=== PATIENT | male | born 2000 | race African-American/Black ===

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

== ENCOUNTER 2019-02-14 07:40 | Emergency (ER) | payer OTHER, SELFPAY ==
[2019-02-14] MEDS ORDERED: Azithromycin 250 MG TAB ONE (08:01)
[2019-02-14] MEDS ORDERED: cefTRIAXone\\ROCEPHIN 250 MG VIAL ONE (08:01)
== END 2019-02-14 08:10 | disposition home or self-care (01) ==
LOC: MADERS 07:40
DX: A64 Unspecified sexually transmitted disease (principal); B35.6 Tinea cruris
CPT/HCPCS: 96372; J0696

== ENCOUNTER 2019-06-07 07:32 | Emergency (ER) | payer SELFPAY ==
[2019-06-07] MEDS ORDERED: Lidocaine 1% 20 ML MDV ONE (08:13)
[2019-06-07] MEDS ORDERED: cefTRIAXone\\ROCEPHIN 250 MG VIAL ONE (08:13)
[2019-06-09 22:03] LABS: Chlam.trachomatis by PCR,Urine DETECTED (NotDetected)
== END 2019-06-07 08:40 | disposition home or self-care (01) ==
LOC: MADERS 07:32
DX: N34.1 Nonspecific urethritis (principal)
CPT/HCPCS: 87086; 87491; 87591; 96372; 99283; J0696; J2001

== ENCOUNTER 2020-03-26 08:20 | Emergency (ER) | payer SELFPAY | END 2020-03-26 08:51 | disposition home or self-care (01) | LOC: MADERS 08:20 | DX: L29.3 Anogenital pruritus, unspecified (principal) | CPT/HCPCS: 99281 ==

== ENCOUNTER 2020-03-30 09:11 | Emergency (ER) | payer SELFPAY ==
[2020-03-30 10:06] LABS: #Lymphocytes 2.1 thou/uL (1.20-3.40); #Monocytes 0.4 thou/uL (0.11-0.59); #Neutrophils 1.9 thou/uL (1.40-6.50); %Eosinophils 0.8 % (0.0-10.0); %Lymphocytes 46.7 % (28.0-48.0); %Monocytes 8.9 % (0.0-4.0); %Neutrophils 42.5 % (31.0-61.0); Hemoglobin 15.3 g/dL (14.0-18.0); Mean Corpuscular Hemoglobin 28.5 pg (25.0-35.0); Mean Platelet Volume 8.4 fL (7.4-10.4); Platelet Count 247 thou/uL (130-400); RBC Distribution Width 11.6 % (11.5-14.5); Red Blood Cell (RBC) Count 5.37 mill/uL (4.00-5.20); White Blood Cell (WBC) Count 4.4 thou/uL (4.8-10.8)
[2020-03-30] MEDS ORDERED: Ondansetron PF 4 MG/2 ML Vial ONE (10:16)
[2020-03-30] MEDS ORDERED: Sodium Chloride 0.9% 1,000 ML ONE (10:16)
[2020-03-30] MEDS ORDERED: Morphine 4 MG/ML VIAL ONE (10:16)
[2020-03-30 10:25] LABS: ALT (SGPT) 15 U/L (8-55); AST (SGOT) 18 U/L (5-34); Albumin 4.7 g/dL (3.5-5.0); Alkaline Phosphatase 59 U/L (50-130); Anion Gap 16 mmol/L (10-20); BUN (Urea Nitrogen) 11 mg/dL (8.9-20.6); Bilirubin, Total 0.8 mg/dL (0.2-1.2); Calc. Creatinine Clearance 0 mL/min (70-130); Carbon Dioxide 24 mmol/L (22-29); Chloride 106 mmol/L (98-107); Estimated GFR-MDRD Greater than 90; Globulin 3.1 g/dL (2.4-3.5); Glucose 89 mg/dL (70-105); Lipase 18 U/L (8-78); Potassium 3.9 mmol/L (3.5-5.1); Protein, Total 7.8 g/dL (6.0-8.3); Sodium 142 mmol/L (136-145)
[2020-03-30] MEDS ORDERED: Ketorolac Tromethamine 30 MG/ML VIAL ONE (10:56)
[2020-03-30 11:02] LABS: Bilirubin Negative (Negative); Blood, Urine Negative (Negative); Clarity Clear (Clear); Glucose, Urine (Dipstick) Negative (Negative); Leukocyte Negative (Negative); Nitrite Negative (Negative); Protein, Urine (Dipstick) Negative (Neg-Trace); Urobilinogen 0.2 mg/dL (Less than 2)
[2020-03-30] MEDS ORDERED: Milk Of Magnesia 30 ML UDCUP ONE (11:17)
--- NOTE | 2020-03-30 11:31 | CT ---
CT ABDOMEN AND PELVIS WITHOUT CONTRAST: Date: 03/30/2020 HISTORY: 19-year-old male with abdominal pain. FINDINGS: Absence of oral and IV contrast reduces sensitivity of exam, particularly for evaluation of solid org ans and bowel. The lung bases are clear. No free air or free fluid is seen in the abdomen or pelvis. No calcified ga llstones are noted. The appendix is normal. The small bowel loops are not abnormally dilated. No calculi seen in the kidneys, ureters, or the urinary bladder. No hydroureteronephrosis is noted on either side. Bony structures are unremarkable. IMPRESSION: No CT evidence of urinary tract calculi/obstruction or appendicitis. POS: OFF
== END 2020-03-30 11:28 ==
LOC: MADERS 09:11
DX: K59.00 Constipation, unspecified (principal)
CPT/HCPCS: 36415; 74176; 80053; 81003; 83690; 85025; 96361; 96374; 96375; J1885; J2270; J2405; J7050

== ENCOUNTER 2021-03-03 07:21 | Emergency (ER) | payer SELFPAY ==
[2021-03-03] MEDS ORDERED: cefTRIAXone\\ROCEPHIN 1 GM VIAL ONE (08:29)
[2021-03-03] MEDS ORDERED: Sterile Water 10 ML ONE (08:29)
[2021-03-05 21:41] LABS: Chlam.trachomatis by PCR,Urine Not Detected (NotDetected)
== END 2021-03-03 09:04 | disposition home or self-care (01) ==
LOC: MADERS 07:21
DX: N34.2 Other urethritis (principal)
CPT/HCPCS: 87491; 87591; 96372; 99283; J0696